=== PATIENT | male | born 1995 | race Two or more races ===

== ENCOUNTER → 2018-08-05 | Emergency (ER) | payer SELFPAY ==
[~2018-08-05] VITALS: Ht 170.2 cm; Wt 106.6 kg
[~2018-08-05] MED LIST: CEFAZOLIN 1 G VIAL ONE; HYDROMORPHONE 1 MG/1 ML DISP.SYRIN IV ONE; HYDROMORPHONE 1 MG/1 ML DISP.SYRIN ONE; KETOROLAC TROMETHAMINE 30 MG INJ IVP ONE; KETOROLAC TROMETHAMINE 30 MG INJ ONE; ONDANSETRON 4 MG/2 ML VIAL ONE; ONDANSETRON IV *ER 4 MG/2 ML VIAL IV ONE; TAMSULOSIN HCL 0.4 MG CAP.SR.24H ONE; TAMSULOSIN HCL 0.4 MG CAP.SR.24H PO ONE
--- NOTE | 2018-08-05 19:47 | NUR ---
patient to ed with c/o right flank pain that radiates to right side of abdomen. no active vomiting, but patient states that he has hx of kidney stones. last episode was two months ago.
[2018-08-05 20:10] LABS: *BILIRUBIN,URIN 1+ (NEGATIVE); *BLOOD, URINE 3+ (NEGATIVE); *CLARITY,URINE CLOUDY (CLEAR); *COLOR,URINE YELLOW (YELLOW); *KETONES,URINE NEGATIVE (NEGATIVE); *PROTEIN,URINE 3+ (NEGATIVE); *UROBILINOGEN,URINE 0.2 E.U./dl (NORMAL); LEUKOCYTE ESTERASE ,URINE NEGATIVE (NEGATIVE); NITRITE, URINE NEGATIVE (NEGATIVE); PH,URINE 5.5 (5.0-8.0); UGLUCOSE TRACE (NEGATIVE)
[2018-08-05 20:21] LABS: CALCIUM OXALATE CRYSTALS,UR FEW /HPF (NONE SEEN); RBC,URINE 50-80 /HPF (0-3); URINE AMORPHOUS URATE MODERATE /HPF; WBC,URINE 0-3 /HPF (0-3)
[2018-08-05 20:22] LABS: MUCUS,URINE MODERATE /LPF (0-FEW)
--- NOTE | 2018-08-05 21:25 | NUR ---
patient expressed relief of discomfort. states pain is 0/10 scale, patient to be dc'd home
[2018-08-05 21:47] VITALS: BP 119/67
== END | disposition home or self-care (01) ==
LOC: ER 19:26
DX: N20.0 Calculus of kidney (principal); F17.200 Nicotine dependence, unspecified, uncomplicated
CPT/HCPCS: 76770; 81001; 96374; 96375; 99285; J1170; J1885; J2405; A4663; J0690